=== PATIENT | male | born 1995 | race Caucasian/White ===

== ENCOUNTER 2018-08-13 16:25 | Emergency (ER) | payer SELFPAY ==
[~2018-08-13] VITALS: Ht 172.7 cm; Wt 84.0 kg
[2018-08-13 17:03] VITALS: BP 121/75
== END 2018-08-13 18:14 | disposition left against medical advice (07) ==
LOC: ER 16:25
DX: T40.7X1A Poisoning by cannabis (derivatives), accidental (unintentional), initial encounter (principal); R47.81 Slurred speech; F41.9 Anxiety disorder, unspecified; R42 Dizziness and giddiness; H53.2 Diplopia; R11.10 Vomiting, unspecified; Y92.89 Other specified places as the place of occurrence of the external cause
CPT/HCPCS: 99281